=== PATIENT | male | born 1975 | race Caucasian/White ===

== ENCOUNTER → 2017-02-13 | Outpatient (CLI) | payer OTHER ==
[~2017-02-13] MED LIST: ALAVERT10 M1 PO; AMBIEN10 M1 PO; ASPIRIN FOR CHI81 MG PO; ASPIRIN81 M1 PO; CANE; CIPROFLOXACIN500 MG PO; CLARITIN10 MG PO; CLEOCIN150 MG PO; CLONAZEPAM1 M1 PO; COMBIVENT AER RES; CYMBALTA60 MG PO; DILANTIN KAPSE100 MG PO; DILANTIN100 MG PO; DULER200 INH; DULERA100 INH; FLONASE ALLERG9.9 ML NS; FLONASE0.05 MG/AC NS; Flovent 220 M220 MCG INH; GABAPENTIN TAB600 MG PO; HYDROCODONE BIT1 T11 PO; KLONOPIN1 MG PO; LEVAQUIN750 MG PO; LIDODERM 5% PATC1 EA PO; MEDROL DOSEPAK4 MG PO; MELATONIN1 M3 PO; MOBIC7.5 MG PO; MOTRIN800 MG PO; NAPROSYN500 MG PO; NORCO 325 MG-7.1 TAB PO; NORCO 5-325 TA1 EACH PO; NORFLEX100 MG PO; OXYCOD/APAP TAB 5-3; OXYCODONE AND A1 TA9 PO; PERCOCET 325 MG1 TA2; PERCOCET 325 MG1 TA2 PO; PREDNICOT20 MG PO; PREDNISONE20 MG PO; PRILOSEC20 MG PO; PRILOSEC40 MG PO; PROAIR HFA AER; PROAIR HFA0.09 MG/AC INH; ROBAXIN500 MG PO; SINGULAIR10 MG PO; THE MEDICINE S400 IU PO; TORADOL10 MG PO; VICODIN 500 MG-1 TAB PO; XANAX0.5 MG PO; ZOFRAN ODT4 MG SL
== END | disposition home or self-care (01) ==
LOC: ORTHO 02:27
DX: M25.551 Pain in right hip (principal); Z96.641 Presence of right artificial hip joint

== ENCOUNTER 2017-02-28 15:06 | Emergency (ER) | payer OTHER ==
[~2017-02-28] VITALS: Wt 48.5 kg
[2017-02-28] MEDS ORDERED: HYDROCODONE BIT1 T11 PO (16:01)
== END 2017-02-28 15:43 | disposition home or self-care (01) ==
LOC: ED 15:06
DX: G89.29 Other chronic pain (principal); M54.5 Low back pain; Z79.899 Other long term (current) drug therapy; Z88.0 Allergy status to penicillin; Z88.8 Allergy status to other drugs, medicaments and biological substances; Z88.6 Allergy status to analgesic agent

== ENCOUNTER → 2017-03-13 | Outpatient (CLI) | payer OTHER | END | disposition home or self-care (01) | LOC: RAD 17:42 | DX: R91.1 Solitary pulmonary nodule (principal) ==

== ENCOUNTER → 2017-03-19 | Outpatient (CLI) | payer OTHER | END | disposition home or self-care (01) | LOC: CT 14:00 | DX: M48.54XA Collapsed vertebra, not elsewhere classified, thoracic region, initial encounter for fracture (principal); R91.8 Other nonspecific abnormal finding of lung field; D73.89 Other diseases of spleen; M47.894 Other spondylosis, thoracic region; Z72.0 Tobacco use ==

== ENCOUNTER 2017-04-01 21:08 | Emergency (ER) | payer OTHER ==
[~2017-04-01] VITALS: Ht 177.8 cm; Wt 54.4 kg
[2017-04-01] MEDS ORDERED: KETOROLAC10 MG PO (21:29)
[2017-04-01 21:59] LABS: BASO % 0.6 % (0.0-1.0); EOS # 0.2 10*3/uL (0.0-0.4); EOS % 3.7 % (1.0-4.0); HEMATOCRIT 40.7 % (42.0-52.0); HEMOGLOBIN 13.6 g/dl (14.0-18.0); LYMPH # 2.5 10*3/uL (1.3-4.4); LYMPH % 37.6 % (27.0-41.0); MEAN CELL VOLUME 94.9 fl (80.0-94.0); MEAN CORPUSCULAR HGB 31.7 pg (27.0-31.0); MEAN CORPUSCULAR HGB CONC 33.4 g/dl (33.0-37.0); MEAN PLATELET VOLUME 9.2 fl (9.6-12.3); MONO # 0.4 10*3/uL (0.1-1.0); MONO % 6.4 % (3.0-9.0); NEUT # 3.4 10*3/uL (2.3-7.9); NEUT % 51.5 % (47.0-73.0); PLATELET COUNT AUTOMATED 153 10*3/uL (130-400); RED BLOOD COUNT 4.29 10*6/uL (4.50-5.90); RED CELL DISTRI WIDTH 12.5 % (0-14.5); WHITE BLOOD COUNT 6.6 10*3/uL (4.8-10.8)
[2017-04-01 22:14] LABS: ALKALINE PHOSPHATASE 98 U/L (45-117); BILIRUBIN, TOTAL 0.4 mg/dl (0.2-1.0); BUN 11 mg/dl (7-24); C-REACTIVE PROTEIN 0.73 MG/DL (0-0.3); CARBON DIOXIDE 30 mmol/L (21-32); CHLORIDE 103 mmol/L (98-107); EST GLOM FILT AFRICAN AMERICAN > 60 ml/min; GLUCOSE 82 mg/dL (65-99); MAGNESIUM 2.1 mg/dL (1.5-2.1); POTASSIUM 3.5 mmol/L (3.5-5.1); SGOT/AST 23 IU/L (3-35); SGPT/ALT 23 U/L (12-78); SODIUM 138 mmol/L (136-145)
[2017-04-01 23:38] LABS: BILIRUBIN NEGATIVE (NEGATIVE); BLOOD NEGATIVE (NEGATIVE); CLARITY SL CLOUDY (CLEAR); COLOR YELLOW (YELLOW); GLUCOSE NEGATIVE (NEGATIVE); KETONE NEGATIVE (NEGATIVE); LEUKO ESTERASE NEGATIVE (NEGATIVE); NITRITE NEGATIVE (NEGATIVE); PROTEIN NEGATIVE (NEGATIVE)
[2017-04-01 23:43] LABS: EPITHELIAL CELLS 0-3; RBC 0-2 rbc/hpf (0-2); WBC 0-2 wbc/hpf (0-5)
[2017-04-01 23:44] LABS: BACTERIA 2+; URINE REFLEX COMMENT YES (NO)
[2017-04-01] MEDS ORDERED: NORCO 5-325 TA1 EACH PO (23:51)
== END 2017-04-01 23:52 | disposition home or self-care (01) ==
LOC: ED 21:08
PROVIDERS: Emergency Medicine Emergency Medical Services
DX: M54.5 Low back pain (principal); D73.89 Other diseases of spleen; G89.29 Other chronic pain; M79.672 Pain in left foot; M79.671 Pain in right foot; F17.200 Nicotine dependence, unspecified, uncomplicated; Z79.899 Other long term (current) drug therapy; Z88.0 Allergy status to penicillin; Z88.8 Allergy status to other drugs, medicaments and biological substances; Z88.6 Allergy status to analgesic agent

== ENCOUNTER → 2017-04-04 | Outpatient (CLI) | payer OTHER ==
[~2017-04-04] MED LIST changes: +KETOROLAC10 MG PO
== END | disposition home or self-care (01) ==
LOC: CT 13:00
DX: D73.4 Cyst of spleen (principal)

== ENCOUNTER 2017-04-20 14:19 | Emergency (ER) | payer OTHER ==
[2017-04-20 14:58] LABS: BASO % 0.5 % (0.0-1.0); EOS # 0.2 10*3/uL (0.0-0.4); EOS % 2.8 % (1.0-4.0); HEMATOCRIT 42.3 % (42.0-52.0); HEMOGLOBIN 14.2 g/dl (14.0-18.0); LYMPH % 31.7 % (27.0-41.0); MEAN CELL VOLUME 93.4 fl (80.0-94.0); MEAN CORPUSCULAR HGB 31.3 pg (27.0-31.0); MEAN CORPUSCULAR HGB CONC 33.6 g/dl (33.0-37.0); MEAN PLATELET VOLUME 9.1 fl (9.6-12.3); MONO # 0.5 10*3/uL (0.1-1.0); MONO % 7.7 % (3.0-9.0); NEUT # 3.7 10*3/uL (2.3-7.9); NEUT % 57.1 % (47.0-73.0); PLATELET COUNT AUTOMATED 176 10*3/uL (130-400); RED BLOOD COUNT 4.53 10*6/uL (4.50-5.90); WHITE BLOOD COUNT 6.4 10*3/uL (4.8-10.8)
[2017-04-20 15:15] LABS: ALBUMIN 4.1 gm/dl (3.1-4.5); ALKALINE PHOSPHATASE 104 U/L (45-117); BILIRUBIN, TOTAL 0.5 mg/dl (0.2-1.0); BUN 10 mg/dl (7-24); CARBON DIOXIDE 31 mmol/L (21-32); CHLORIDE 102 mmol/L (98-107); EST GLOM FILT AFRICAN AMERICAN > 60 ml/min; GLUCOSE 87 mg/dL (65-99); SGOT/AST 24 IU/L (3-35); SGPT/ALT 26 U/L (12-78); SODIUM 139 mmol/L (136-145); TOTAL PROTEIN 7.6 gm/dL (6.4-8.2)
[2017-04-20] MEDS ORDERED: HYDROCODONE BIT1 T11 PO (16:43)
[2017-04-20] MEDS ORDERED: NAPROSYN500 MG PO (16:43)
== END 2017-04-20 17:08 | disposition home or self-care (01) ==
LOC: ED 14:19
PROVIDERS: Physician Assistant
DX: D73.4 Cyst of spleen (principal); R10.12 Left upper quadrant pain; Z88.0 Allergy status to penicillin; Z88.6 Allergy status to analgesic agent; Z88.8 Allergy status to other drugs, medicaments and biological substances

== ENCOUNTER 2017-04-27 12:21 | Emergency (ER) | payer OTHER ==
[~2017-04-27] VITALS: Wt 50.3 kg
[2017-04-27 12:50] LABS: BILIRUBIN NEGATIVE (NEGATIVE); BLOOD NEGATIVE (NEGATIVE); CLARITY CLEAR (CLEAR); COLOR YELLOW (YELLOW); GLUCOSE NEGATIVE (NEGATIVE); KETONE NEGATIVE (NEGATIVE); LEUKO ESTERASE NEGATIVE (NEGATIVE); NITRITE NEGATIVE (NEGATIVE); PROTEIN NEGATIVE (NEGATIVE); SPECIFIC GRAVITY <= 1.005 (1.005-1.030); UROBILINOGEN 0.2 E.U./dl (0.2-1.0)
[2017-04-27 13:00] LABS: EPITHELIAL CELLS 0-2; URINE REFLEX COMMENT NO (NO); WBC 0-2 wbc/hpf (0-5)
== END 2017-04-27 13:12 | disposition home or self-care (01) ==
LOC: ED 12:21
PROVIDERS: Emergency Medicine
DX: G89.29 Other chronic pain (principal); R10.12 Left upper quadrant pain; Z88.0 Allergy status to penicillin; Z88.8 Allergy status to other drugs, medicaments and biological substances; Z88.6 Allergy status to analgesic agent; Z79.899 Other long term (current) drug therapy

== ENCOUNTER 2017-09-28 14:03 | Emergency (ER) | payer OTHER ==
[~2017-09-28] VITALS: Wt 54.0 kg
[2017-09-28] MEDS ORDERED: KEFLEX500 M1 PO (14:29)
[2017-09-28] MEDS ORDERED: [UNRECOGNIZED DRUG - OTHER] PO (14:29)
== END 2017-09-28 15:04 | disposition home or self-care (01) ==
LOC: ED 14:03
DX: K12.0 Recurrent oral aphthae (principal); R03.0 Elevated blood-pressure reading, without diagnosis of hypertension; L73.9 Follicular disorder, unspecified; G89.29 Other chronic pain; F17.200 Nicotine dependence, unspecified, uncomplicated; Z88.8 Allergy status to other drugs, medicaments and biological substances; Z88.0 Allergy status to penicillin; Z79.899 Other long term (current) drug therapy

== ENCOUNTER 2017-11-23 15:27 | Emergency (ER) | payer OTHER ==
[~2017-11-23 15:27] MED LIST changes: +KEFLEX500 M1 PO; +[UNRECOGNIZED DRUG - OTHER] PO
[2017-11-23] MEDS ORDERED: LIDOCAINE5 GM T (15:28)
[2017-11-23] MEDS ORDERED: NAPROSYN500 MG PO (16:47)
== END 2017-11-23 16:04 | disposition home or self-care (01) ==
LOC: ED 15:27
DX: S40.012A Contusion of left shoulder, initial encounter (principal); G89.29 Other chronic pain; F17.200 Nicotine dependence, unspecified, uncomplicated; Z88.0 Allergy status to penicillin; Z88.5 Allergy status to narcotic agent; W01.0XXA Fall on same level from slipping, tripping and stumbling without subsequent striking against object, initial encounter; Y93.89 Activity, other specified; Y92.89 Other specified places as the place of occurrence of the external cause; Y99.8 Other external cause status

== ENCOUNTER 2017-12-13 22:27 | Emergency (ER) | payer OTHER ==
[~2017-12-13] VITALS: Ht 177.8 cm; Wt 53.1 kg
[~2017-12-13 22:27] MED LIST changes: +LIDOCAINE5 GM T
[2017-12-14] MEDS ORDERED: NORCO 5-325 TA1 EACH PO (00:38)
== END 2017-12-14 00:36 | disposition home or self-care (01) ==
LOC: ED 22:27
DX: S70.02XA Contusion of left hip, initial encounter (principal); G89.29 Other chronic pain; M25.552 Pain in left hip; Z88.0 Allergy status to penicillin; Z88.8 Allergy status to other drugs, medicaments and biological substances; Z88.6 Allergy status to analgesic agent; Z79.899 Other long term (current) drug therapy; W00.0XXA Fall on same level due to ice and snow, initial encounter; Y93.89 Activity, other specified; Y92.89 Other specified places as the place of occurrence of the external cause; Y99.8 Other external cause status

== ENCOUNTER → 2018-03-03 | Outpatient (CLI) | payer OTHER | END | disposition home or self-care (01) | LOC: ORTHO 00:14 | DX: M25.552 Pain in left hip (principal); Z96.641 Presence of right artificial hip joint ==

== ENCOUNTER 2021-05-26 18:35 | Emergency (ER) | payer OTHER ==
[~2021-05-26] VITALS: Ht 177.8 cm; Wt 54.9 kg
[~2021-05-26 18:35] MED LIST changes: +CLINDAMYCIN HC300 MG PO
[2021-05-26] MEDS ORDERED: IBUPROFEN600 MG PO (23:12)
[2021-05-26] MEDS ORDERED: KENALOG 0.1%80 GM T (23:13)
== END 2021-05-26 23:30 | disposition home or self-care (01) ==
LOC: ED 18:35
DX: R07.89 Other chest pain (principal); L25.9 Unspecified contact dermatitis, unspecified cause; M54.12 Radiculopathy, cervical region; Z88.0 Allergy status to penicillin; Z88.8 Allergy status to other drugs, medicaments and biological substances; Z79.899 Other long term (current) drug therapy; Z98.890 Other specified postprocedural states; W51.XXXA Accidental striking against or bumped into by another person, initial encounter; Y93.89 Activity, other specified; Y92.89 Other specified places as the place of occurrence of the external cause; Y99.8 Other external cause status